=== PATIENT | male | born 1935 | race Caucasian/White ===

== ENCOUNTER → 2020-02-08 | Outpatient (CLI) | payer MEDICARE | END | disposition home or self-care (01) | LOC: RAD 12:01 | PROVIDERS: ATTEND Orthopaedic Surgery | DX: S41.012A Laceration without foreign body of left shoulder, initial encounter (principal); M25.412 Effusion, left shoulder; M84.422A Pathological fracture, left humerus, initial encounter for fracture; M19.012 Primary osteoarthritis, left shoulder; X58.XXXA Exposure to other specified factors, initial encounter; Y93.89 Activity, other specified; Y92.89 Other specified places as the place of occurrence of the external cause; Y99.8 Other external cause status ==